=== PATIENT | male | born 1975 | race Caucasian/White ===

== ENCOUNTER → 2023-05-18 | Day surgery (SDC) | payer BC ==
[~2023-05-18] MED LIST: Lidocaine PF 2% (20 MG/ML) 2 ML VIAL ONE
== END ==
LOC: MSO 07:05
DX: Z12.11 Encounter for screening for malignant neoplasm of colon (principal); D12.4 Benign neoplasm of descending colon; Z87.891 Personal history of nicotine dependence
CPT/HCPCS: 00811; 00812; J2704; J7120